=== PATIENT | male | born 1980 | race Caucasian/White ===

== ENCOUNTER 2025-04-27 14:53 | Emergency (ER) | payer OTHER, SELFPAY ==
[2025-04-27 14:59] VITALS: BP 160/96; PULSE 103; RESP 16; TEMP 36.9; O2SAT 96
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
--- NOTE | 2025-04-27 15:34 | DI.RAD_ITS ---
Exam(s) XR FOREARM RT EXAM: XR FOREARM RT CLINICAL HISTORY: trauma. ? fracture. TECHNIQUE: 2D digital imaging was performed of the left forearm. Three views were obtained. AP and lateral views were obtained. COMPARISON: No exams were available for comparison FINDINGS: BONES: No acute fracture is present. No bony destructive lesion is seen. Visualized portion of elbow and wrist joints are unremarkable. SOFT TISSUE: Calcific tendinitis is seen at the triceps insertion site. IMPRESSION: 1. Unremarkable radiographs of the left forearm. 2. The preliminary [facility] report was reviewed. DATA REPOSITORY: RADIATION DOSE DELIVERED:
--- NOTE | 2025-04-27 15:44 | DI.[facility]_ITS ---
PROCEDURE INFORMATION: Exam: XR Right Forearm Exam date and time: 04/27/2025 3:28 PM Age: 45 years old Clinical indication: Other: Trauma. ? Fracture TECHNIQUE: Imaging protocol: Radiologic exam of the right forearm. Views: 2 views. COMPARISON: No relevant prior studies available. FINDINGS: Bones/joints: Normal. Soft tissues: Normal. IMPRESSION: No evidence for fracture. Dictated and Authenticated by: Yaquelin Edwards MD. Orderin Wilber Jimenez MD
== END 2025-04-27 16:52 | disposition home or self-care (01) ==
PROVIDERS: Emergency Provider Student in an Organized Health Care Education/Training Program
DX: S59.811A Other specified injuries right forearm, initial encounter (principal); V18.0XXA Pedal cycle driver injured in noncollision transport accident in nontraffic accident, initial encounter
CPT/HCPCS: 99283 ×2; 73090